=== PATIENT | female | born 1980 | race Caucasian/White ===

== ENCOUNTER 2018-07-30 15:34 | Emergency (ER) | payer OTHER ==
[~2018-07-30] VITALS: Ht 157.5 cm; Wt 53.6 kg
[2018-07-30 15:37] VITALS: BP 132/85
[2018-07-30] MEDS ORDERED: DIPH,PERTUSS(ACELL),TET VAC/PF 0.5 ML IM-VACC ONE ×2 (16:00→16:27)
[2018-07-30] MEDS ORDERED: BACITRACIN ZINC OINT 500U/GM, 0.9 GM ONE (16:13)
[2018-07-30 17:04] LABS: MICROSCOPIC INDICATED
[2018-07-30 17:09] LABS: HCG UR SG 1.025 (1.003-1.030)
[2018-07-30 17:12] LABS: CULTURE INDICATED? YES
[2018-07-30] MEDS ORDERED: KETOROLAC 30 MG/1 ML ONE (17:24)
[2018-07-30] MEDS ORDERED: DIAZEPAM 5 MG TABLET ONE (17:24)
[2018-07-30] MEDS ORDERED: DIAZEPAM 5 MG TABLET PO ONE (18:00)
[2018-07-30] MEDS ORDERED: KETOROLAC 30 MG/1 ML IM ONE (18:00)
== END 2018-07-30 17:54 | disposition home or self-care (01) ==
LOC: ED 17:49
DX: S39.012A Strain of muscle, fascia and tendon of lower back, initial encounter (principal); N39.0 Urinary tract infection, site not specified; S50.312A Abrasion of left elbow, initial encounter; W19.XXXA Unspecified fall, initial encounter; Y93.89 Activity, other specified; Y92.89 Other specified places as the place of occurrence of the external cause; Y99.8 Other external cause status
CPT/HCPCS: 72110; 81001; 81025; 87077; 87086; 87186; 90471; 90715; 96372; 99285; J1885

== ENCOUNTER 2019-01-03 01:54 | Emergency (ER) | payer BC ==
[~2019-01-03] VITALS: Ht 157.5 cm; Wt 53.2 kg
[2019-01-03 01:58] VITALS: BP 135/83
== END 2019-01-03 03:01 | disposition home or self-care (01) ==
LOC: ED 02:50
DX: R21 Rash and other nonspecific skin eruption (principal); M79.631 Pain in right forearm; F17.210 Nicotine dependence, cigarettes, uncomplicated
CPT/HCPCS: 99282

== ENCOUNTER 2019-02-05 15:28 | Emergency (ER) | payer BC ==
[~2019-02-05] VITALS: Ht 157.5 cm; Wt 51.0 kg
[2019-02-05 15:33] VITALS: BP 126/86
--- NOTE | 2019-02-05 16:13 | NUR ---
Patient given discharge instructions and they have confirmed that they understand the instructions. Patient ambulatory with steady gait. Pt left with discharge paper, work note, and all personal belongings.
== END 2019-02-05 16:20 | disposition home or self-care (01) ==
LOC: ED 16:05
DX: S40.011A Contusion of right shoulder, initial encounter (principal); S09.8XXA Other specified injuries of head, initial encounter; F17.210 Nicotine dependence, cigarettes, uncomplicated; W20.8XXA Other cause of strike by thrown, projected or falling object, initial encounter; Y93.89 Activity, other specified; Y92.89 Other specified places as the place of occurrence of the external cause; Y99.8 Other external cause status
CPT/HCPCS: 99281